=== PATIENT | male | born 1945 | race Caucasian/White ===

== ENCOUNTER 2020-10-17 13:19 | Emergency (ER) | payer MEDICARE ==
[~2020-10-17] VITALS: Ht 188 cm; Wt 84.8 kg
[~2020-10-17 13:19] MED LIST: BISA5EC PO; DOCU100 PO; MULVITMIND PO; PYRI100 PO; Stool Softener100 MG PO
[2020-10-17] MEDS ORDERED: DEXA6 PO (13:39)
== END 2020-10-17 14:16 | disposition home or self-care (01) ==
LOC: ER 13:19
DX: U07.1 COVID-19 (principal); F17.200 Nicotine dependence, unspecified, uncomplicated
CPT/HCPCS: 99283

== ENCOUNTER 2020-10-23 12:52 | Inpatient (IN) | payer OTHER, MEDICARE ==
[~2020-10-23] VITALS: Ht 185.4 cm; Wt 77.5 kg
[~2020-10-23 12:52] MED LIST changes: +DEXA6 PO
[2020-10-23 14:00] LABS: Alanine Aminotransfer (ALT/SGP 94 U/L (12-78); Albumin, Blood 2.3 g/dL (3.4-5.0); Albumin/Globulin Ratio 0.5 (0.8-1.8); Alk Phos 183 U/L (50-136); Anion Gap 4 mmol/L (6-16); Aspartate Aminotrans (AST/SGOT 54 U/L (12-37); Bilirubin, Total 1.2 mg/dL (0.1-1.0); Blood Urea Nitrogen 38 mg/dL (8-24); Bun/Creatinine Ratio 38.6 (12.0-20.0); CO2, Blood 28 mmol/L (21-32); Calcium, Blood 8.5 mg/dL (8.5-10.1); Chloride, Blood 104 mmol/L (98-108); Creatinine, Blood 0.98 mg/dL (0.60-1.20); Glomerular Filtration Rate >60 (60-); Glucose, Blood 125 mg/dL (70-99); Potassium, Blood 3.9 mmol/L (3.5-5.5); Sodium, Blood 136 mmol/L (136-145); Total Protein, Blood 7.3 g/dL (6.4-8.2); Troponin I <0.015 ng/mL (0.000-0.040)
[2020-10-23 17:12] LABS: BASOPHILS ABSOLUTE AUTO 0.07 K/mm3 (0.00-0.23); BASOPHILS PERCENT AUTO 0 % (0-2); EOSINOPHILS PERCENT AUTO 0 % (0-6); Hematocrit 45.7 % (37.0-53.0); Hemoglobin 15.5 g/dL (13.5-17.5); IMMATURE GRAN ABSOLUTE AUTO 0.59 K/mm3 (0.00-0.10); IMMATURE GRAN PERCENT AUTO 3 % (0-1); LYMPHOCYTES ABSOLUTE AUTO 0.74 K/mm3 (0.84-5.20); LYMPHOCYTES PERCENT AUTO 4 % (21-46); MONOCYTES ABSOLUTE AUTO 0.77 K/mm3 (0.16-1.47); MONOCYTES PERCENT AUTO 4 % (4-13); Mean Corpuscular HGB 30.8 pg (26.0-34.0); Mean Corpuscular HGB Conc 33.9 g/dL (31.5-36.5); Mean Corpuscular Volume 91 fL (80-100); Mean Platelet Volume 12.1 fL (9.1-12.4); NEUTROPHILS ABSOLUTE AUTO 16.52 K/mm3 (1.96-9.15); NEUTROPHILS PERCENT AUTO 88 % (41-73); Platelet Count 308 K/mm3 (150-400); RDW Coefficient Variation 14.1 % (11.7-14.2); Red Blood Cell Count 5.04 M/mm3 (4.30-5.90); White Blood Cell Count 18.69 K/mm3 (4.00-11.30)
--- NOTE | 2020-10-24 04:19 | NUR ---
SHIFT SUMMARY- PT. A&O, PLEASANT, AND COOPERATIVE WITH CARE. COVID POS, ON 15L HIGH FLOW NC. SATS MAINTAINED @93-95% PT. HAD NO COMPLAINTS OF PAIN OR DISCOMFORT DURING THE NIGHT. RESTED QUIETLY IN BED, NO APPARENT DISTRESS NOTED. CALL LIGHT WITHIN REACH AND SIDE RAILS UPX2. WILL CONT TO MONITOR.
[2020-10-24 05:18] LABS: BASOPHILS ABSOLUTE AUTO 0.02 K/mm3 (0.00-0.23); BASOPHILS PERCENT AUTO 0 % (0-2); EOSINOPHILS PERCENT AUTO 0 % (0-6); Hematocrit 38.2 % (37.0-53.0); IMMATURE GRAN ABSOLUTE AUTO 0.23 K/mm3 (0.00-0.10); IMMATURE GRAN PERCENT AUTO 2 % (0-1); LYMPHOCYTES ABSOLUTE AUTO 0.53 K/mm3 (0.84-5.20); LYMPHOCYTES PERCENT AUTO 4 % (21-46); MONOCYTES ABSOLUTE AUTO 0.56 K/mm3 (0.16-1.47); MONOCYTES PERCENT AUTO 4 % (4-13); Mean Corpuscular HGB 30.7 pg (26.0-34.0); Mean Corpuscular Volume 90 fL (80-100); Mean Platelet Volume 11.4 fL (9.1-12.4); NEUTROPHILS PERCENT AUTO 91 % (41-73); Platelet Count 241 K/mm3 (150-400); RDW Coefficient Variation 13.9 % (11.7-14.2); RDW Standard Deviation 46.5 fL (35.1-46.3); Red Blood Cell Count 4.23 M/mm3 (4.30-5.90); White Blood Cell Count 14.14 K/mm3 (4.00-11.30)
[2020-10-24 05:38] LABS: Alanine Aminotransfer (ALT/SGP 61 U/L (12-78); Albumin, Blood 1.9 g/dL (3.4-5.0); Albumin/Globulin Ratio 0.4 (0.8-1.8); Alk Phos 145 U/L (50-136); Anion Gap 3 mmol/L (6-16); Aspartate Aminotrans (AST/SGOT 31 U/L (12-37); Bilirubin, Total 1.1 mg/dL (0.1-1.0); Blood Urea Nitrogen 25 mg/dL (8-24); Bun/Creatinine Ratio 31.7 (12.0-20.0); CO2, Blood 28 mmol/L (21-32); Calcium, Blood 8.1 mg/dL (8.5-10.1); Chloride, Blood 107 mmol/L (98-108); Creatinine, Blood 0.79 mg/dL (0.60-1.20); Globulin, Blood 4.3 g/dL (2.2-4.0); Glomerular Filtration Rate >60 (60-); Glucose, Blood 119 mg/dL (70-99); Potassium, Blood 3.9 mmol/L (3.5-5.5); Sodium, Blood 138 mmol/L (136-145); Total Protein, Blood 6.2 g/dL (6.4-8.2)
--- NOTE | 2020-10-24 17:10 | NUR ---
SHIFT SUMMARY PATIENT ALERT AND ORIENTED THIS SHIFT. PATIENT ON 15L NON-REBREATHER MASK THIS AM. PATIENT'S O2 SATS IN THE 80S AND DROPPING INTO THE 70S AT TIMES. PATIENT CONTINUOUSLY TOOK OF HIS MASK. PATIENT SATS REMAINING BELOW 88 ON NON-REBREATHER. PATIENT PLACED ON AIRVO BY RT. PATIENT ON 50L @ 90% ON AIRVO. PATIENT SATS > 90 WHILE AT REST ON AIRVO. PATIENT OCCASIONALLY DROPS INTO MID 80S WITH REPOSITIONING, THEN RETURNS TO 90S. PATIENT LYING IN BED THROUGHOUT THIS SHIFT. PATIENT NAPPED MUCH OF THE AFTERNOON. PATIENT CURRENTLY LYING IN BED WATCHING TELEVISION.
--- NOTE | 2020-10-25 06:16 | NUR ---
SHIFT SUMMARY- PT. A&O T/O THE NIGHT. ON AIRVO 50L @90% PT. REMOVED AIRVO NC 2X LAST NIGHT STATED IT WAS BOTHERING HIM. SATS DROPPED INTO THE 50'S. NRB HAD TO BE PLACED OVER AIRVO BOTH TIMES DUE TO SLOW RECOVERY. SATS ABOVE [address] DISCUSSED WITH PT. RISKS OF BEING W/O O2 AND INSTRUCTED TO CALL FOR ASSISTANCE WITH URINAL OR WITH ANY OTHER NEEDS, VERBALIZED UNDERSTANDING. PT. ALSO HAD COMPLAINTS OF HIP AND LEG PAIN LAST NIGHT, MEDICATED WITH TYLENOL WITH GOOD EFFECT. RESTING QUIETLY IN BED AT THIS TIME, NO APPARENT DISTRESS NOTED. CALL LIGHT WITHIN REACH AND SIDE RAILS UPX2. WILL CONT TO MONITOR.
[2020-10-25 10:46] LABS: BASOPHILS ABSOLUTE AUTO 0.03 K/mm3 (0.00-0.23); BASOPHILS PERCENT AUTO 0 % (0-2); EOSINOPHILS ABSOLUTE AUTO 0.01 K/mm3 (0.00-0.68); EOSINOPHILS PERCENT AUTO 0 % (0-6); Hematocrit 37.1 % (37.0-53.0); Hemoglobin 12.7 g/dL (13.5-17.5); IMMATURE GRAN ABSOLUTE AUTO 0.25 K/mm3 (0.00-0.10); IMMATURE GRAN PERCENT AUTO 2 % (0-1); LYMPHOCYTES ABSOLUTE AUTO 0.43 K/mm3 (0.84-5.20); LYMPHOCYTES PERCENT AUTO 3 % (21-46); MONOCYTES PERCENT AUTO 2 % (4-13); Mean Corpuscular HGB 30.7 pg (26.0-34.0); Mean Corpuscular HGB Conc 34.2 g/dL (31.5-36.5); Mean Corpuscular Volume 90 fL (80-100); Mean Platelet Volume 12.3 fL (9.1-12.4); NEUTROPHILS ABSOLUTE AUTO 15.78 K/mm3 (1.96-9.15); NEUTROPHILS PERCENT AUTO 93 % (41-73); Platelet Count 298 K/mm3 (150-400); RDW Coefficient Variation 13.7 % (11.7-14.2); Red Blood Cell Count 4.14 M/mm3 (4.30-5.90)
[2020-10-25 11:24] LABS: Alanine Aminotransfer (ALT/SGP 43 U/L (12-78); Albumin, Blood 1.7 g/dL (3.4-5.0); Albumin/Globulin Ratio 0.4 (0.8-1.8); Alk Phos 142 U/L (50-136); Anion Gap 5 mmol/L (6-16); Aspartate Aminotrans (AST/SGOT 26 U/L (12-37); Bilirubin, Total 1.2 mg/dL (0.1-1.0); Blood Urea Nitrogen 21 mg/dL (8-24); Bun/Creatinine Ratio 31.7 (12.0-20.0); CO2, Blood 27 mmol/L (21-32); Calcium, Blood 8.2 mg/dL (8.5-10.1); Chloride, Blood 106 mmol/L (98-108); Creatinine, Blood 0.66 mg/dL (0.60-1.20); Glomerular Filtration Rate >60 (60-); Glucose, Blood 131 mg/dL (70-99); Potassium, Blood 4.1 mmol/L (3.5-5.5); Sodium, Blood 138 mmol/L (136-145); Total Protein, Blood 5.7 g/dL (6.4-8.2)
[2020-10-25 14:35] LABS: Source, Urine Clean Catch
[2020-10-25 14:43] LABS: Appearance, Urine Clear (Clear); Bilirubin, Urine Neg (Neg); Blood, Urine 1+ (Neg); Color, Urine Yellow (P-Yellow); Glucose Qualitative, Urine 1+ (Neg); Ketones, Urine Neg (Neg); Leukocyte Esterase, Urine 1+ (Neg); Nitrite, Urine Neg (Neg); Protein, Urine 2+ (Neg); Specific Gravity, Urine 1.015 (1.003-1.022); Urobilinogen, Urine 3+ (Normal)
[2020-10-25 14:56] LABS: Bacteria Rare /hpf; Red Blood Cells, Urine 0-2 /hpf (0-2); Squamous Epithelial Cells Few /hpf (Few); White Blood Cells, Urine 0-2 /hpf (0-5)
--- NOTE | 2020-10-25 18:31 | NUR ---
SHIFT SUMMARY PATIENT ALERT AND ORIENTATED MOST OF THE SHIFT. PATIENT IS ON THE AIRVO AND HAS HAD INCREASED 02 NEEDS. PATIENT SATS IN THE 90S WHEN AIRVO AND NONREBREATHER ARE IN PLACE. PATIENT IS CURRENTLY AWAITING TRANSFER TO [facility]. CALL LIGHT IN REACH. SIDE RAILS UP AND AWAITING FOR TRANSFER AND MONITORING UNTIL END OF SHIFT.
--- NOTE | 2020-10-25 20:43 | NUR ---
LIFE PARTNER, EILEEN INFORMED THAT S.O WAS BEING TRANSFERRED TO [facility] AND THAT PT WOULD CALL HER TOMORROW.
--- NOTE | 2020-10-25 22:13 | NUR ---
DISCHARGE NOTE CALLED [facility]. GAVE REPORT TO BREANNE PENG AT [facility]. PT LEFT THE FLOOR BUT WAS RETURNED BY TRANSPORT MEDICS DUE TO DESATURATION. PT RETURNED TO ROOM. RT ARRIVED TO PUT PT ON CPAP AND STABILIZE HIM FOR TRANSPORT. ORDER RETRIEVED FOR 0.25 MG OF ATIVAN. CPAP SENT WITH PT AND MEDICS. MEDICS WILL RETURN CPAP TONIGHT.
--- NOTE | 2020-10-25 22:25 | NUR ---
DISCHARGE NOTE DISCHARGE AND TRANSFER EXPLAINED TO PT. PT AGREED TO DISCHARGE TO [facility]. PAPERWORK SIGNED. PERSONAL POSSESSIONS WITH PT. FAMILY INFORMED. IV IN PLACE. CPAP IN PLACE. HANDOFF CALLED TO [facility] NURSE.
== END 2020-10-25 22:11 | DRG 177 ==
LOC: ER 12:52 → MEDS 18:08
PROVIDERS: Family Medicine; Hospitalist; Student in an Organized Health Care Education/Training Program
PROC: 8E0ZXY6 Isolation (ICD-10-PCS; principal; 2020-10-23)
PROC: 3E0333Z Introduction of Anti-inflammatory into Peripheral Vein, Percutaneous Approach (ICD-10-PCS; 2020-10-23)
PROC: XW033E5 Introduction of Remdesivir Anti-infective into Peripheral Vein, Percutaneous Approach, New Technology Group 5 (ICD-10-PCS; 2020-10-23)
DX: U07.1 COVID-19 (principal); J96.01 Acute respiratory failure with hypoxia; J12.82 Pneumonia due to coronavirus disease 2019; R79.1 Abnormal coagulation profile; K59.00 Constipation, unspecified; E86.0 Dehydration; Z90.49 Acquired absence of other specified parts of digestive tract; Z87.891 Personal history of nicotine dependence; Z79.899 Other long term (current) drug therapy; Z72.89 Other problems related to lifestyle
CPT/HCPCS: 36415; 71045; 71260; 80053; 81001; 82728; 82947; 84145; 84484; 85025; 85379; 86141; 93005; 93010; 94640; 94660; 94762; 96361; 96374; 96375; 99285-25; A9270; J1100; J1650; J7030; J7050; J7120; Q9967

== ENCOUNTER 2020-11-30 10:57 | Observation (INO) | payer OTHER ==
[~2020-11-30] VITALS: Ht 185.4 cm; Wt 67.5 kg
[2020-11-30] MEDS ORDERED: SENN187 PO (11:23)
[2020-11-30] MEDS ORDERED: MIRALAX17 G3 PO (11:24)
[2020-11-30 12:41] LABS: Hematocrit 35.8 % (37.0-53.0); Hemoglobin 11.7 g/dL (13.5-17.5); Mean Corpuscular HGB 29.8 pg (26.0-34.0); Mean Corpuscular HGB Conc 32.7 g/dL (31.5-36.5); Mean Corpuscular Volume 91 fL (80-100); Platelet Count 415 K/mm3 (150-400); RDW Coefficient Variation 14.9 % (11.7-14.2); RDW Standard Deviation 49.7 fL (35.1-46.3); Red Blood Cell Count 3.92 M/mm3 (4.30-5.90); White Blood Cell Count 27.59 K/mm3 (4.00-11.30)
[2020-11-30 12:55] LABS: Alanine Aminotransfer (ALT/SGP 17 U/L (12-78); Albumin, Blood 1.6 g/dL (3.4-5.0); Albumin/Globulin Ratio 0.3 (0.8-1.8); Alk Phos 167 U/L (50-136); Anion Gap 7 mmol/L (6-16); Aspartate Aminotrans (AST/SGOT 28 U/L (12-37); Bilirubin, Total 0.6 mg/dL (0.1-1.0); Blood Urea Nitrogen 10 mg/dL (8-24); Bun/Creatinine Ratio 15.6 (12.0-20.0); CO2, Blood 28 mmol/L (21-32); Calcium, Blood 8.4 mg/dL (8.5-10.1); Chloride, Blood 101 mmol/L (98-108); Creatinine, Blood 0.64 mg/dL (0.60-1.20); Globulin, Blood 5.9 g/dL (2.2-4.0); Glomerular Filtration Rate >60 (60-); Glucose, Blood 129 mg/dL (70-99); Potassium, Blood 3.6 mmol/L (3.5-5.5); Sodium, Blood 136 mmol/L (136-145); Total Protein, Blood 7.5 g/dL (6.4-8.2); Troponin I <0.015 ng/mL (0.000-0.040)
[2020-11-30 13:27] LABS: BASOPHILS ABSOLUTE MAN 0.27 K/mm3 (0.00-0.23); BASOPHILS PERCENT MAN 1 % (0-2); EOSINOPHILS PERCENT MAN 0 % (0-6); LYMPHOCYTES ABSOLUTE MAN 0.55 K/mm3 (0.84-5.20); LYMPHOCYTES PERCENT MAN 2 % (21-46); MONOCYTES PERCENT MAN 8 % (4-13); NEUTROPHILS ABSOLUTE MAN 24.55 K/mm3 (1.96-9.15); SEG NEUTROPHILS PERCENT MAN 89 % (41-73); TOTAL CELLS COUNTED 100
--- NOTE | 2020-11-30 19:08 | NUR ---
PT AO X 4 ADMITTED TO MEDICAL FLOOR FROM ER THIS EVENING.PT HAVE A PRESSURE ULCER ON BUTT COCCYX AREA ,MEPLEX IN PLACE FOR PREVENTION.PT ON 3L NC SATS IN HIGH 90S AND PT STATED THAT HIS BASELINE AT HOME.PT HAVE A WET COUGH,SEND SPUTUM SAMPLE TO LAB.PT LUNGS VOLUME ARE DIMINISHED.PT HAVE NRS AT 75ML/HR.PT IN BED,BED IN LOW POSITION,CALL LIGHT IN REACH WILL CONTINUE TO MONITOR.
[2020-11-30 21:48] LABS: Source, Urine Clean Catch
[2020-11-30 21:51] LABS: Bilirubin, Urine Neg (Neg); Blood, Urine 2+ (Neg); Glucose Qualitative, Urine Neg (Neg); Ketones, Urine 1+ (Neg); Leukocyte Esterase, Urine 3+ (Neg); Nitrite, Urine Pos (Neg); Protein, Urine 2+ (Neg); Urobilinogen, Urine 2+ (Normal)
[2020-11-30 21:57] LABS: Appearance, Urine Cloudy (Clear); Color, Urine Amber (P-Yellow); White Blood Cells, Urine TNTC /hpf (0-5)
[2020-11-30 21:58] LABS: Bacteria Many /hpf; Red Blood Cells, Urine 0-2 /hpf (0-2); Squamous Epithelial Cells Not Seen /hpf (Few)
--- NOTE | 2020-11-30 23:37 | NUR ---
IV infusing rt AC not doc , PT says started in ED
[2020-12-01 04:45] LABS: BASOPHILS ABSOLUTE AUTO 0.07 K/mm3 (0.00-0.23); BASOPHILS PERCENT AUTO 0 % (0-2); EOSINOPHILS PERCENT AUTO 0 % (0-6); Hematocrit 30.3 % (37.0-53.0); Hemoglobin 9.8 g/dL (13.5-17.5); IMMATURE GRAN ABSOLUTE AUTO 0.45 K/mm3 (0.00-0.10); IMMATURE GRAN PERCENT AUTO 2 % (0-1); LYMPHOCYTES ABSOLUTE AUTO 1.19 K/mm3 (0.84-5.20); LYMPHOCYTES PERCENT AUTO 5 % (21-46); MONOCYTES ABSOLUTE AUTO 0.77 K/mm3 (0.16-1.47); MONOCYTES PERCENT AUTO 3 % (4-13); Mean Corpuscular HGB Conc 32.3 g/dL (31.5-36.5); Mean Corpuscular Volume 93 fL (80-100); Mean Platelet Volume 10.8 fL (9.1-12.4); NEUTROPHILS ABSOLUTE AUTO 19.95 K/mm3 (1.96-9.15); NEUTROPHILS PERCENT AUTO 89 % (41-73); Platelet Count 334 K/mm3 (150-400); RDW Coefficient Variation 14.8 % (11.7-14.2); RDW Standard Deviation 50.8 fL (35.1-46.3); Red Blood Cell Count 3.27 M/mm3 (4.30-5.90); White Blood Cell Count 22.43 K/mm3 (4.00-11.30)
[2020-12-01 05:06] LABS: Alanine Aminotransfer (ALT/SGP 15 U/L (12-78); Albumin, Blood 1.2 g/dL (3.4-5.0); Albumin/Globulin Ratio 0.2 (0.8-1.8); Alk Phos 135 U/L (50-136); Anion Gap 5 mmol/L (6-16); Aspartate Aminotrans (AST/SGOT 17 U/L (12-37); Bilirubin, Total 0.3 mg/dL (0.1-1.0); Blood Urea Nitrogen 15 mg/dL (8-24); Bun/Creatinine Ratio 21.6 (12.0-20.0); CO2, Blood 28 mmol/L (21-32); Chloride, Blood 105 mmol/L (98-108); Creatinine, Blood 0.69 mg/dL (0.60-1.20); Globulin, Blood 4.8 g/dL (2.2-4.0); Glomerular Filtration Rate >60 (60-); Glucose, Blood 162 mg/dL (70-99); Magnesium, Blood 2.1 mg/dL (1.6-2.4); Potassium, Blood 3.5 mmol/L (3.5-5.5); Sodium, Blood 138 mmol/L (136-145)
--- NOTE | 2020-12-01 05:18 | NUR ---
PT admitted after leaving [facility] with covid 19. PT says he spent 1 month at [facility] with covid 19 diagnosed in Oct 2020. [facility]As oxygen set up at home uses 3 l . PT has cough productive sputum sample sent for culture. Sptum thick ward rust this AM. Medicated for chest wall pain with toradol 30 mg & ultram 50 mg x 1 with good relief. UA sent with positive UA C & S pending. lives with disabled & step son who assists with Wifes care. Pleasant & cooperative. PT has pressure ulcer on admit see photo. Protective foam applied. Fluids & oral intake encouraged.
--- NOTE | 2020-12-01 17:34 | NUR ---
SHIFT SUMMARY: NO ACUTE EVENTS. DENIED PAIN. ON HOME DOSE OF O2 @ 3 L/MIN NC, PRODUCTIVE COUGH WITH MCHUGH SPUTUM. [employer]ELOPE ADDRESSER SAW PT, MADE RECOMMENDATIONS FOR SUPPLEMENTS. USING URINAL INDEPENDENTLY, COURTNEY URINE. NEEDS ENCOURAGEMENT TO MOVE IN BED, IS ABLE TO TRANSFER FROM BED TO [facility].
--- NOTE | 2020-12-02 04:07 | NUR ---
SHIFT SUMMARY PATIENT HAD NO ACUTE CHANGES OBSERVED. AXOX 3 AND INDEPENDENT IN ROOM. TAKES MEDICATION WHOLE WITH WATER. PIV REMAINS INTACT. ON 3L O2 N/C. BOWEL CARE MEDICATION ADDED TO EMAR AND STARTED THIS NOCX SHIFT. DENIES PAIN, SOB, AND N/V. VSS/AFEBRILE. CALL LIGHT IN REACH. BED IN LOWEST POSITION. WILL CONTINUE TO MONITOR UNTIL DAY SHIFT NURSE ASSUMES CARE.
[2020-12-02 04:48] LABS: Hematocrit 30.4 % (37.0-53.0); Hemoglobin 9.6 g/dL (13.5-17.5); Mean Corpuscular HGB 29.4 pg (26.0-34.0); Mean Corpuscular HGB Conc 31.6 g/dL (31.5-36.5); Mean Corpuscular Volume 93 fL (80-100); Mean Platelet Volume 10.5 fL (9.1-12.4); Platelet Count 333 K/mm3 (150-400); RDW Coefficient Variation 14.6 % (11.7-14.2); RDW Standard Deviation 50.1 fL (35.1-46.3); Red Blood Cell Count 3.27 M/mm3 (4.30-5.90); White Blood Cell Count 15.34 K/mm3 (4.00-11.30)
[2020-12-02 05:11] LABS: Alanine Aminotransfer (ALT/SGP 17 U/L (12-78); Albumin, Blood 1.3 g/dL (3.4-5.0); Albumin/Globulin Ratio 0.3 (0.8-1.8); Alk Phos 125 U/L (50-136); Anion Gap 4 mmol/L (6-16); Aspartate Aminotrans (AST/SGOT 20 U/L (12-37); Bilirubin, Total 0.3 mg/dL (0.1-1.0); Blood Urea Nitrogen 12 mg/dL (8-24); Bun/Creatinine Ratio 18.7 (12.0-20.0); CO2, Blood 29 mmol/L (21-32); Chloride, Blood 104 mmol/L (98-108); Creatinine, Blood 0.64 mg/dL (0.60-1.20); Ferritin, Serum 587 ng/mL (26-388); Globulin, Blood 4.8 g/dL (2.2-4.0); Glomerular Filtration Rate >60 (60-); Glucose, Blood 108 mg/dL (70-99); Iron Serum 32 ug/dL (65-175); Percent Saturation 29.6 % (20.0-50.0); Potassium, Blood 3.2 mmol/L (3.5-5.5); Sodium, Blood 137 mmol/L (136-145); Total Iron Binding Capacity 108 ug/dL (250-450); Total Protein, Blood 6.1 g/dL (6.4-8.2)
--- NOTE | 2020-12-02 08:21 | NUR ---
pt laying in bed awake a/ox3, pleasant and cooperative with care, follows commands well, denies pain except a twinge in his chest that seems to be related to coughing, lungs are dim t/o, has a productive cough of copious ward sputum, currently on 3 liters o2 via n/c, resp even and unlabored, hrr, no edema noted, ppp+1, cap refill <3sec, vs stable, afebrile, piv to lac, site is clear and patent, btx2 hypoactive, voids via urinal, clear yellow urine, skin has mepilex to coccyx, was told he gets up indep, but pt states hes very weak, mega gramajo, call light in reach, asked him to call for assist before getting oob
[2020-12-02] MEDS ORDERED: DOCU100 PO (15:27)
[2020-12-02] MEDS ORDERED: ALBU2.5V5 INH (15:27)
[2020-12-02] MEDS ORDERED: GUAI600T33 PO (15:29)
[2020-12-02] MEDS ORDERED: IPRAT-ALBUT 0.5-3 ML INH (15:30)
[2020-12-02] MEDS ORDERED: ASPI81CH PO (15:30)
[2020-12-02] MEDS ORDERED: LEVO750 PO (15:30)
[2020-12-02] MEDS ORDERED: PANT20 PO (15:30)
[2020-12-02] MEDS ORDERED: PRED20 PO (15:31)
--- NOTE | 2020-12-02 17:00 | NUR ---
PT HAS BEEN DISCHARGED TO HOME WITH HOMEHEALTH, SON IN TO TAKE HIM HOME, WENT OVER ALL DISCHARGE INSTRUCTIONS AND NEW MEDS FAXED TO THE [facility], IV REMOVED INTACT, LEFT VIA WHEELCHAIR WITH SON IN ATTENDENCE. PT HAS ALL BELONGINGS.
== END 2020-12-02 17:21 | disposition home health service (06) ==
LOC: ER 10:57 → MEDS 10:58
PROVIDERS: Emergency Medicine; Nurse Practitioner Acute Care; ADMIT Internal Medicine
DX: J18.9 Pneumonia, unspecified organism (principal); U07.1 COVID-19; J96.21 Acute and chronic respiratory failure with hypoxia; J44.9 Chronic obstructive pulmonary disease, unspecified; D64.9 Anemia, unspecified; R73.9 Hyperglycemia, unspecified; L50.0 Allergic urticaria; T36.1X5A Adverse effect of cephalosporins and other beta-lactam antibiotics, initial encounter; Y92.238 Other place in hospital as the place of occurrence of the external cause; Z87.891 Personal history of nicotine dependence
CPT/HCPCS: 36415; 71045; 71260; 80053; 81001; 82728; 83036; 83540; 83550; 83605; 83735; 84145; 84484; 85025; 85027; 85379; 86140; 87070; 87077; 87086; 87186; 87205; 93005; 93010; 96365; 96367; 96372; 96375; 97112; 97161; 99285-25; A9270; C9113; G0378; J0456; J0696; J1170; J1200; J1650; J1720; J1885; J2405; J7030; J7050; Q9967

== ENCOUNTER 2023-03-27 11:39 | Day surgery (SDC) | payer OTHER ==
[~2023-03-27] VITALS: Ht 182.9 cm; Wt 85.1 kg
[~2023-03-27 11:39] MED LIST changes: +ALBU2.5V5 INH; +ASPI81CH PO; +BP MED; +Balanced Salt Epinephrine Irrigation Solution 500 mL IR SCH; +GUAI600T33 PO; +IPRAT-ALBUT 0.5-3 ML INH; +LEVO750 PO; +Lidocaine HCl/Pf 1% 5 ML VIAL XX SCH; +MIRALAX17 G3 PO; +Moxifloxacin HCL 0.5 MG/0.1 ML 0.4MLSYR RIGHTEYE SCH; +NS 500 ML IV ONE; +PANT20 PO; +PHENYLEPHRINE\\TROPICAMIDE\\TETRACAINE OPHTHALMIC DILATING SOLN RIGHTEYE PRN; +PRED20 PO; +Povidone-Iodine 450 DROP/30 ML Solution ONE; +Povidone-Iodine 450 DROP/30 ML Solution RIGHTEYE SCH; +SENN187 PO
[2023-03-27] MEDS ORDERED: NS 500 ML IV ONE (12:24)
--- NOTE | 2023-03-27 12:25 | NUR ---
03/27/23 1225 Amber Back CALL LIGHT WITHIN REACH. TETRACAINE IN AT 1219 IN RIGHT EYE AND PLEDGETT IN AT 1221
[2023-03-27] MEDS ORDERED: Midazolam HCl 1MG / ML 2ML Vial ONE (12:52)
[2023-03-27] MEDS ORDERED: Tetracaine HCl 0.5% Opth Soln 15 ml XX ONE (13:02)
[2023-03-27 13:32] VITALS: BP 124/72
== END 2023-03-27 13:55 | disposition home or self-care (01) ==
LOC: ORSCSDS 11:39
PROVIDERS: Student in an Organized Health Care Education/Training Program
PROC: 08RJ3JZ Replacement of Right Lens with Synthetic Substitute, Percutaneous Approach (ICD-10-PCS; principal; 2023-03-27 13:00)
DX: H25.13 Age-related nuclear cataract, bilateral (principal); H52.201 Unspecified astigmatism, right eye; H21.81 Floppy iris syndrome; I10 Essential (primary) hypertension; J44.9 Chronic obstructive pulmonary disease, unspecified
CPT/HCPCS: J2250; J7040; V2632